=== PATIENT | male | born 1940 | race Caucasian/White ===

== ENCOUNTER 2017-04-11 09:52 | Day surgery (SDC) | payer MEDICARE ==
[~2017-04-11] VITALS: Ht 172.7 cm; Wt 63.5 kg
[2017-04-11] MEDS ORDERED: LACTATED RINGERS 1,000 ML IV SCH (10:55)
[2017-04-11 10:58] VITALS: BP 87/58
[2017-04-11] MEDS ORDERED: GABA600T2 PO (12:01)
[2017-04-11] MEDS ORDERED: POTA99TA24 PO (12:01)
[2017-04-11] MEDS ORDERED: duoneb IH (12:01)
[2017-04-11] MEDS ORDERED: BUDE0.253 INH (12:01)
[2017-04-11] MEDS ORDERED: FENTANYL PF 250 MCG/5ML ONE (12:32)
[2017-04-11] MEDS ORDERED: MIDAZOLAM 1 MG/ML, 2ML ONE (12:32)
[2017-04-11] MEDS ORDERED: PROPOFOL 10 MG/ML, 20ML ONE (12:33)
[2017-04-11] MEDS ORDERED: ACETAMINOPHEN 325 MG TABLET PO PRN (13:00)
[2017-04-11] MEDS ORDERED: ONDANSETRON 2MG/ML, 2ML IVPush PRN (13:00)
[2017-04-11] MEDS ORDERED: HYDROmorphone 1 MG/ML, 1ML IV PRN (13:00)
[2017-04-11] MEDS ORDERED: OXYcodone 5 MG/5 ML ORAL.SOL UDC PO PRN (13:00)
[2017-04-11] MEDS ORDERED: METOPROLOL 1 MG/ML, 5ML ONE (13:14)
[2017-04-11] MEDS: METOPROLOL 1 MG/ML, 5ML IV PRN ×3 (13:15→13:50)
[2017-04-11] MEDS ORDERED: ONDANSETRON 2MG/ML, 2ML ONE (13:24)
[2017-04-11] MEDS ORDERED: PROMETHAZINE 25 MG/ML, 1ML ONE (13:41)
[2017-04-11] MEDS ORDERED: PROMETHAZINE 25 MG/ML, 1ML IV PRN (14:00)
[2017-04-11] MEDS: LABETALOL 5MG/ML, 20ML IV PRN ×2 (14:11→14:30)
[2017-04-11] MEDS ORDERED: FENTANYL PF 100 MCG/2ML ONE (14:29)
[2017-04-11] MEDS: FENTANYL PF 100 MCG/2ML IV PRN ×2 (14:30→14:40)
== END 2017-04-11 16:40 ==
LOC: OUT 09:52
DX: C16.0 Malignant neoplasm of cardia (principal); Z88.8 Allergy status to other drugs, medicaments and biological substances
CPT/HCPCS: 43239; 43266; 71045; 76000; 88305; 93005; C1876; J2250; J2405; J2550; J2704; J3010; J7120